=== PATIENT | female | born 1945 | race Caucasian/White ===

== ENCOUNTER → 2020-01-12 12:03 | Outpatient (CLI) | payer MEDICARE, SELFPAY ==
--- NOTE | 2020-01-11 13:45 | CER_PTH ---
PATIENT: JADEN LEVIN LOC: [facility] U#:[id number] AGE/SX: 80/F ROOM: RE01/12/[address]: Dr. Aydee Recio MD : [id number] BED: DIS: SPEC #: [id number] RECD: 01/11/20 17:43 STATUS: CALVIN SMITA #: [id number] NOBLE: 01/11/20 13:[address]: Aydee Oates DEPT: SURGICAL PATHOLOGY RECD BY: Joon Peralta Tissues: Uterine cervix, NOS Procedures: Surgery Specimen Level IV HEADER OPERATION: Cervical polyp removal PRE-OP DIAGNOSIS: Cervical polyp TISSUE SUBMITTED: Cervical polyp MICROSCOPIC DIAGNOSIS Cervical polyp, biopsy: Inflamed benign endocervical polyp. SJ:ankur 01/13/20 MICROSCOPIC DESCRIPTION Slides are reviewed. GROSS DESCRIPTION Received in fixative is one container labeled with the patient's name and designated cervical polyp. The specimen consists of a piece of ng-pink polyp measuring 1 x 0.3 x 0.1 cm. The entire specimen is submitted in one cassette. / SJ:rg 01/12/20 TC:5 CPT: 08112
== END ==
PROVIDERS: Visit Provider Obstetrics & Gynecology
DX: N84.1 Polyp of cervix uteri (principal)
CPT/HCPCS: 88305

== ENCOUNTER → 2020-01-13 16:05 | Outpatient (CLI) | payer MEDICARE, SELFPAY | PROVIDERS: Visit Provider Obstetrics & Gynecology | DX: R35.0 Frequency of micturition (principal) | CPT/HCPCS: 87086; 87088; 87186 ==